=== PATIENT | male | born 1995 | race Caucasian/White ===

== ENCOUNTER 2016-05-30 13:08 | Emergency (ER) | payer BC ==
[2016-05-30] MEDS ORDERED: oxyCODONE/Acetamin 5/325 MG* TAB PO ONE (13:56)
[2016-05-30] MEDS ORDERED: Propofol* 10 MG/ML 20 ML BTL IV PUSH ONE ×2 (14:39→15:43)
[2016-05-30] MEDS ORDERED: KETAMINE HCL* 50 MG/ML 10 ML VIAL IV ONE (14:39)
--- NOTE | 2016-05-30 15:08 | ED ---
Upper Extremity Pain - HPI Summary HPI Summary: Patient is a RHD male who was lifting himself into the bed of a dump truck and felt his R shoulder dislocate about 3 hours ago. This is a recurrent issue for the last 3 years, but has not followed up with orthopedic surgery as directed each of the last 3 occurences. Denies any other complaints. Went to the walk in center and had xray confirmation. No allev factors attempted or given until arriving to the ED. - History of Current Complaint Chief Complaint: EDGeneral Stated Complaint: RT SHOULDER INJURY Time Seen by Provider: 05/30/16 14:28 Hx Obtained From: Patient, Family/Database Software Technician - Friends Onset/Duration: Started Hours Ago Timing: Constant PMH/Surg Hx/FS Hx/Imm Hx Previously Healthy: Yes Infectious Disease History: No Infectious Disease History: Denies: Traveled Outside the [place] in Last 30 Days Review of Systems Positive: Arthralgia All Other Systems Reviewed And Are Negative: Yes Physical Exam Triage Information Reviewed: Yes Vital Signs On Initial Exam: Initial Vitals Temp Pulse Resp BP Pulse Ox 98.4 F 67 20 131/88 100 05/30/16 13:10 05/30/16 13:10 05/30/16 13:10 05/30/16 13:10 05/30/16 13:10 Vital Signs Reviewed: Yes Appearance: Positive: Well-Appearing, Well-Nourished, Pain Distress Skin: Positive: Warm, Skin Color Reflects Adequate Perfusion, Dry Neck: Positive: Supple, Nontender Respiratory/Lung Sounds: Positive: Clear to Auscultation, Breath Sounds Present Cardiovascular: Positive: Normal, RRR, Pulses are Symmetrical in both Upper and Lower Extremities Abdomen Description: Positive: Nontender, No Organomegaly, Soft Musculoskeletal: Positive: Limited @, Abnormal @ - R shoulder with defect and anterior displacement of the humeral head [id number] ROM. Neurological: Positive: Normal, Sensory/Motor Intact, Alert, Oriented to Person Place, Time, CN Intact II-III, Reflexes Intact, Normal Gait Diagnostics - Vital Signs Vital Signs Temp Pulse Resp BP Pulse Ox 05/30/16 14:04 97.9 F 75 24 170/74 99 05/30/16 13:10 98.4 F 67 20 131/88 100 - Laboratory Lab Statement: Any lab studies that have been ordered have been reviewed, and results considered in the medical decision making process. Course/Dx - Diagnoses Differential Diagnosis/HQI/PQRI: Positive: Other - Disalocation without neuro deficit or deltoid numbness. Failed bedside reduction and will sedate and reduce. Provider Diagnoses: Dislocation - Physician Notifications Discussed Care Of Patient With: Anesthesia paged to reduce. Discharge - Discharge Plan Condition: Improved Disposition: HOME Patient Education Materials: Shoulder Dislocation (ED), Moderate Sedation (ED) Referrals: Zak Obregon MD [Medical Doctor] -
[2016-05-30] MEDS ORDERED: Midazolam* 1 MG/ML 5 ML VIAL (5 MG) ONE (15:43)
[2016-05-30] MEDS ORDERED: fentaNYL* 50 MCG/ML 2 ML VIAL (100 MCG VIAL) ONE (15:43)
[2016-05-30] MEDS ORDERED: Lidocaine 2% PF * 5 ML VIAL ONE (15:43)
[2016-05-30] MEDS ORDERED: Sodium Citrate/Citric Acid* 15 ML UDC ONE (15:53)
--- NOTE | 2016-05-30 16:45 | RAD ---
INDICATION: Postreduction COMPARISON: None TECHNIQUE: 2 AP views are submitted. FINDINGS: The AP views show no apparent dislocation. A Y-view is not included. No underlying fracture is seen. IMPRESSION: A SINGLE VIEW SHOWS NO ACUTE RADIOGRAPHIC ABNORMALITY
[2016-05-30 17:21] VITALS: BP 117/74
== END 2016-05-30 17:38 | disposition home or self-care (01) ==
LOC: ED 13:08
DX: S43.004A Unspecified dislocation of right shoulder joint, initial encounter (principal); X50.0XXA Overexertion from strenuous movement or load, initial encounter; Y93.89 Activity, other specified; Y92.9 Unspecified place or not applicable
CPT/HCPCS: 23650; 99284; A9270-GY; J2250; J2704; J3010